=== PATIENT | female | born 2000 | race African-American/Black ===

== ENCOUNTER 2019-03-20 17:49 | Inpatient (IN) | payer OTHER ==
[2019-03-20 18:50] LABS: BILIRUBIN,URINE NEGATIVE (NEGATIVE); GLUCOSE, URINE (UA) NEGATIVE (NEGATIVE); KETONES,URINE (UA) TRACE mg/dL (NEGATIVE); LEUKOCYTE ESTERASE, URINE TRACE (NEGATIVE); NITRITE,URINE NEGATIVE (NEGATIVE); OCCULT BLOOD,URINE LARGE (NEGATIVE); PH,URINE 7.5 PH (5.0-7.5); PROTEIN,URINE 30 mg/dL (NEGATIVE); UROBILINOGEN,URINE 0.2 (NORMAL) E.U./dL (NORMAL)
[2019-03-20 18:52] LABS: CLARITY,URINE HAZY (CLEAR); HCG UR QUAL NEGATIVE
[2019-03-20 18:59] LABS: BACTERIA,URINE Many /HPF (None Seen); SQUAMOUS EPITHELIAL CELL,UR MANY Squamous (<= Few)
[2019-03-20 19:06] LABS: BASOPHILS % (AUTO) 0.3 %; EOSINOPHILS # (AUTO) 0.1 10^3/uL (0.0-0.7); EOSINOPHILS % (AUTO) 0.5 %; HGB - HEMOGLOBIN 15.1 g/dL (12.0-16.0); LYMPHOCYTES # (AUTO) 1.4 10^3/uL (1.5-3.5); MEAN CORPUSCULAR HEMOGLOBIN 31.7 pg (27.0-31.0); MEAN CORPUSCULAR HGB CONC 36.7 g/dL (32.0-36.0); MEAN CORPUSCULAR VOLUME 86.3 fL (81.0-99.0); MEAN PLATELET VOLUME 10.5 fL (7.9-10.8); MONOCYTES # (AUTO) 0.7 10^3/uL (0.0-1.0); MONOCYTES % (AUTO) 4.5 %; NEUTROPHILS # (AUTO) 13.4 10^3/uL (1.5-6.6); NEUTROPHILS % (AUTO) 85.3 %; PLT - PLATELET COUNT 278 10^3/uL (130-450); RED BLOOD COUNT 4.76 10^6/uL (4.20-5.40); RED CELL DISTRIBUTION WIDTH 12.4 % (12.0-15.0); WHITE BLOOD COUNT 15.7 x10^3/uL (4.8-10.8)
--- NOTE | 2019-03-20 20:12 | ED Physician Documentation ---
PD HPI ABD PAIN - Stated complaint Stated Complaint: R SIDE ABD PX - Chief complaint Chief Complaint: Abd Pain - History obtained from History obtained from: Patient, Family - History of Present Illness Timing - onset: Today Timing - duration: Other (all day) Timing - details: Abrupt onset Quality: Stabbing, Throbbing Location: RUQ, Epigastric, RLQ Radiation: No: Chest, , Lower back, Left flank, Left shoulder, Other, Right flank, Right shoulder, Upper back Associated symptoms: Vomiting, Loss of appetite. No: Fever, Hematemesis, Diarrhea, Dysuria, Hematuria, Dizzy Similar symptoms before: Has not had sx before Recently seen: Not recently seen - Additional information Additional information: This is a 19-year-old presents with complaints that she woke up this morning not feeling well and her stomach started hurting around the epigastric area around 11:00 with a stabbing throbbing type pain and she began vomiting. Her last emesis was here in the emergency department. She is had no diarrhea. The pain has now settled and increased on the right side of her abdomen. She did try to take an ibuprofen around 3:00 this afternoon but she thinks that she vomited it up. She denies any dysuria and denies stating her last menstrual period just started 3 days ago. Denies vaginal discharge or previous abdominal surgeries. She is had no fever. Review of Systems Constitutional: denies: Fever Nose: denies: Congestion Throat: denies: Sore throat Cardiac: denies: Chest pain / pressure Respiratory: denies: Cough GI: reports: Abdominal Pain, Nausea, Vomiting : denies: Dysuria, Hesitancy, Now EGA Skin: denies: Rash Neurologic: denies: Syncope PD PAST MEDICAL HISTORY - Present Medications Home Medications: Ambulatory Orders Medication Instructions Recorded Confirmed Norethindrone-E.estradiol-Iron 1 each PO 03/20/19 [Microgestin Fe 1-20 Tablet] - Allergies Allergies/Adverse Reactions: Allergies Allergy/AdvReac Type Severity Reaction Status Date / Time No Known Drug Allergies Allergy Verified 03/20/19 18:33 PD ED PE NORMAL - Vitals Vital signs reviewed: Yes - General General: Alert and oriented X 3, Well developed/nourished, Other (She looks uncomfortable sitting very still on the bed.) - HEENT HEENT: Atraumatic, Other (Mucous membranes are dry.) - Neck Neck: Supple, no meningeal sign, No adenopathy, Thyroid normal - Cardiac Cardiac: RRR, No murmur - Respiratory Respiratory: No respiratory distress, Clear bilaterally - Abdomen Abdomen: Normal bowel sounds, Other (She has diffuse tenderness with guarding and rebound.) - Back Back: No CVA TTP - Derm Derm: Normal color, No rash - Neuro Neuro: Alert and oriented X 3, Other (No gross neurological deficits.) - Psych Psych: Normal affect Results - Vitals Vitals: Vital Signs - 24 hr 03/20/19 03/20/19 03/20/19 18:31 19:56 20:13 Temperature 37.2 C 36.4 C L 37.3 C Heart Rate 109 H 80 91 Respiratory 20 16 18 Rate Blood Pressure 115/65 116/77 105/58 L O2 Saturation 98 96 99 03/20/19 03/20/19 21:07 21:25 Temperature Heart Rate 86 82 Respiratory 18 20 Rate Blood Pressure 107/68 107/68 O2 Saturation 99 100 Oxygen O2 Source Room air - Labs Labs: Laboratory Tests 03/20/19 03/20/19 03/20/19 18:40 19:01 19:01 WBC 15.7 H RBC 4.76 Hgb 15.1 Hct 41.1 MCV 86.3 MCH 31.7 H MCHC 36.7 H RDW 12.4 Plt Count 278 MPV 10.5 Neut # (Auto) 13.4 H Lymph # (Auto) 1.4 L [place] # (Auto) 0.7 Eos # (Auto) 0.1 Baso # (Auto) 0.0 Absolute Nucleated RBC 0.00 Nucleated RBC % 0.0 Sodium 135 Potassium 4.2 Chloride 98 L Carbon Dioxide 25 Anion Gap 12.0 BUN 10 Creatinine 0.7 Estimated GFR (MDRD) 128 Glucose 99 Calcium 9.3 Total Bilirubin < 0.2 L AST 39 ALT 23 Alkaline Phosphatase 63 Total Protein 6.5 L Albumin 4.3 Globulin 2.2 Albumin/Globulin Ratio 2.0 Lipase 446 H Urine Color YELLOW Urine Clarity HAZY Urine pH 7.5 Ur Specific [place] 1.020 Urine Protein 30 H Urine Glucose (UA) NEGATIVE Urine Ketones TRACE Urine Occult Blood LARGE H Urine Nitrite NEGATIVE Urine Bilirubin NEGATIVE Urine Urobilinogen 0.2 (NORMAL) Ur Leukocyte Esterase TRACE H Urine RBC 6-10 H Urine WBC >25 H Ur Squamous Epith Cells MANY Squamous H Urine Bacteria Many H Ur Microscopic Review INDICATED Urine Culture Comments NOT INDICATED Urine HCG, Qual NEGATIVE PD MEDICAL DECISION MAKING - ED course Complexity details: reviewed results, re-evaluated patient, d/w patient, d/w nano burgess ED course: The patient was medicated with Dilaudid and Zofran she was given a liter of fluids. Her urine specimen is contaminated and have asked her to provide a clean new specimen. Her white count was 15.7 and her lipase came back at 446 with normal liver functions. CT confirmed pancreatic inflammation with a lot of peripancreatic fluid no evidence of appendicitis. Case was discussed with the hospitalist and he has agreed to accept the patient for admission. Departure - Departure Disposition: ED Place in Observation Clinical Impression: Pancreatitis Qualifiers: Chronicity: acute Pancreatitis type: unspecified pancreatitis type Acute pancreatitis complication: unspecified Qualified Code(s): K85.90 - Acute pancreatitis without necrosis or infection, unspecified Condition: Good Discharge Date/Time: 03/20/19 23:00
[2019-03-20 20:21] LABS: ALBUMIN 4.3 g/dL (3.2-5.5); ALKALINE PHOSPHATASE 63 IU/L (42-121); ALT ALANINE AMINOTRANSFERASE 23 IU/L (10-60); AST ASPARTATE AMINOTRANSFERASE 39 IU/L (10-42); BILIRUBIN,TOTAL < 0.2 mg/dL (0.2-1.0); BUN - BLOOD UREA NITROGEN 10 mg/dL (6-20); CALCIUM 9.3 mg/dL (8.5-10.3); CARBON DIOXIDE - CO2 25 mmol/L (21-32); CHLORIDE 98 mmol/L (101-111); CREATININE 0.7 mg/dL (0.4-1.0); GFR - MDRD 128 (>89); GLUCOSE 99 mg/dL (70-100); LIPASE 446 U/L (22-51); SODIUM 135 mmol/L (135-145); TOTAL PROTEIN 6.5 g/dL (6.7-8.2)
[2019-03-20] MEDS ORDERED: ONDANSETRON 4 MG/2 ML VIAL IVP STA (20:22)
[2019-03-20] MEDS ORDERED: HYDROmorphone 1 MG/ML CARPUJECT IVP STA ×2 (20:22→21:25)
[2019-03-20] MEDS ORDERED: SODIUM CHLORIDE 0.9% 1,000 ML IV ONE ×2 (20:27→21:36)
[2019-03-20] MEDS ORDERED: IOVERSOL 320 100 ML VIAL IVP ONE ×2 (20:37→20:50)
--- NOTE | 2019-03-20 21:13 | CT Report ---
Reason: abd pain Procedure Date: 03/20/2019 Accession Number: [id number] / [id number] Procedure: CT - Abdomen/Pelvis W CPT Code: FULL RESULT: EXAM: CT ABDOMEN AND PELVIS WITH CONTRAST. EXAM DATE: 03/20/2019 08:47 PM. CLINICAL HISTORY: Abdominal pain. Right lower quadrant pain. COMPARISONS: None. TECHNIQUE: Routine helical CT imaging was performed through the abdomen and pelvis. IV contrast: OPTI-320 100 mL. Enteric contrast: No. Reconstructions: Coronal and sagittal. In accordance with CT protocol optimization, one or more of the following dose reduction techniques were utilized for this exam: automated exposure control, adjustment of mA and/or KV based on patient size, or use of iterative reconstructive technique. FINDINGS: Lung Bases: No acute findings. Liver: Diffuse fatty liver. Gallbladder/Bile Ducts: Unremarkable. Spleen: Normal. Pancreas/duodenum: Diffuse peripancreatic fluid. This fluid is adjacent to the duodenum diffusely, most prominent at the proximal aspect. Acute pancreatitis and/or acute duodenitis could be present. Correlate clinically. No free air or abscess is seen. Small free fluid seen at the right paracolic gutter. Small free fluid in the posterior cul-de-sac. Adrenal Glands: Normal. Kidneys: Normal. No masses or hydronephrosis. Peritoneal Cavity/Bowel: No dilated bowel loops are seen. See above. The cecum is located in the pelvis. The appendix appears within normal limits. Pelvic Organs: Normal. The bladder and visualized pelvic organs are within normal limits. Vasculature: No aneurysms or other significant abnormality. Bones: No acute bone findings. IMPRESSION: 1. Diffuse peripancreatic fluid. This fluid is adjacent to the duodenum diffusely, most prominent at the proximal aspect. Acute pancreatitis and/or acute duodenitis could be present. Correlate clinically. No free air or abscess is seen. Small free fluid seen at the right paracolic gutter. Small free fluid in the posterior cul-de-sac. 2. Fatty liver. 3. See above. RADIA
[2019-03-20] MEDS ORDERED: HYDROmorphone 1 MG/ML CARPUJECT IVP PRN (21:41)
[2019-03-20] MEDS ORDERED: SODIUM CHLORIDE 0.9% 1,000 ML IV SCH (22:00)
[2019-03-20] MEDS ORDERED: MORPHINE 2 MG/ML CARPUJECT IVP STA (22:03)
--- NOTE | 2019-03-20 22:22 | HISTORY & PHYSICAL EXAMINATION ---
Chief Complaint - Chief Complaint Chief Complaint: epigastric pain History of Present Illness - Admitted From Admitted From:: [facility] ED - History Obtained From Records Reviewed: yes History obtained from: patient - History of Present Illness HPI Comment/Other: Patient seen and examined aroun 23:00pm on 03/20/19 Patient is a 19 y/o female who presented to the ED with epigastric pain which started on 03/20/19 in the morning. It was initially a sharp pain which progressed to a throbbing pain. She has been nauseous and vomiting. She denied c hest pain, JAVIER, fever or chills. She drank alcohol about 3 weeks ago when she turned 19 but last had a glass of wine 4 days ago. She was also recently treated with flagyl for a UTI. She is on control. There has been no trauma recently. In the ED she had a CT done which showed bishnu-pancreatic fluid suggesting pancreatitis and fatty liver. Lipase was 446. She rated her pain 10/10 at presentation. As a result of her pain, she is being admitted for further treatment. 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 Denies illicit drug use or tobacco use. She goes to college in [place] - POLST Patient has POLST: No POLST Status: Full Code Meds/Allgy - Home Medications Home Medications: Ambulatory Orders Medication Instructions Recorded Confirmed Norethindrone-E.estradiol-Iron 1 each PO 03/20/19 [Microgestin Fe 1-20 Tablet] - Allergies Allergies/Adverse Reactions: Allergies Allergy/AdvReac Type Severity Reaction Status Date / Time No Known Drug Allergies Allergy Verified 03/20/19 18:33 Review of Systems - Constitutional Constitutional: reports: Poor appetite. denies: Fever, Chills - Eyes Eyes: denies: Blurred vision, Vision loss, Dipolpia - Ears, Nose & Throat Ears, Nose & Throat: denies: Nasal pain, Sore throat, Hoarseness - Cardiovascular Cariovascular: denies: Chest pain, Edema, Lightheadedness, Syncope, Exertional dyspnea - Respiratory Respiratory: denies: Cough, Sputum production, Wheezing, Hemoptysis, SOB at rest, SOB with exertion - Gastrointestinal Gastrointestinal: reports: Abdominal pain, Nausea, Vomiting. denies: Constipation, Diarrhea, Black stools, Bloody stools, Coffee grounds emesis, Reflux/heartburn - Genitourinary Genitourinary: denies: Dysuria, Frequency, Urgency, Hematuria - Musculoskeletal Musculoskeletal: denies: Muscle pain, Back pain, Muscle aches - Integumentary Integumentary: denies: Rash, Pruritis, Lesions - Neurological Neurological: denies: Focal weakness, Headache, Dizziness - Psychiatric Psychiatric: denies: Depression, Anxiety - Endocrine Endocrine: denies: Polyuria, Polydypsia - Hematologic/Lymphatic Hematologic/Lymphatic: denies: Anemia, Bruising, Petechiae Prior Level of Functionality: Patient is independent of activities of daily living Exam - Vital Signs Vital Signs: Vital Signs x48h Temp Pulse Resp BP Pulse Ox 03/20/19 21:25 82 20 107/68 100 03/20/19 21:07 86 18 107/68 99 03/20/19 20:13 37.3 C 91 18 105/58 L 99 03/20/19 19:56 36.4 C L 80 16 116/77 96 03/20/19 18:31 37.2 C 109 H 20 115/65 98 - Physical Exam General Appearance: positive: Alert, Moderate distress Eyes Bilateral: positive: Normal inspection, PERRL, EOMI ENT: positive: ENT inspection nml Neck: positive: Nml inspection, No JVD, Trachea midline. negative: Brudzinski's sign Respiratory: positive: Chest non-tender, No respiratory distress, Breath sounds nml. negative: Rales, Rhonchi Cardiovascular: positive: No murmur, No gallop, Tachycardia Abdomen: positive: Tenderness, Guarding, Rebound Back: positive: Nml inspection Skin: positive: Color nml, No rash, Warm, Dry Extremities: positive: Non-tender, Full ROM, Nml appearance, No pedal edema Neurologic/Psychiatric: positive: Oriented x3, CN's nml (2-12), Motor nml, Sensation nml, Mood/affect nml Conclusion/Plan - Problem List (1) Acute pancreatitis Conclusion/Plan: Etiology undetermined However CT scan suggested fatty liver Patient is on control (known cause) and recently completed a prescription of flagyl (probable cause) NPO. IV hydration with normal saline. Pain management with dilaudid. Zofran for nausea Trend lipase. Checking lipid panel Qualifiers: Acute pancreatitis complication: unspecified (2) Anxiety Conclusion/Plan: Sees a therapist. Not on any medication - Lab Results Fish Bones: 03/21/19 04:54 03/21/19 04:54 Core Measures - Anticipated LOS I expect patient to be DC'd or transferred within 96 hours.: Yes - DVT/VTE - Prophylaxis VTE/DVT Device ordered at admit?: Yes
[2019-03-20 22:36] LABS: BILIRUBIN,URINE NEGATIVE (NEGATIVE); GLUCOSE, URINE (UA) NEGATIVE (NEGATIVE); KETONES,URINE (UA) TRACE mg/dL (NEGATIVE); LEUKOCYTE ESTERASE, URINE NEGATIVE (NEGATIVE); NITRITE,URINE NEGATIVE (NEGATIVE); OCCULT BLOOD,URINE MODERATE (NEGATIVE); PH,URINE 7.5 PH (5.0-7.5); PROTEIN,URINE NEGATIVE (NEGATIVE); UROBILINOGEN,URINE 0.2 (NORMAL) E.U./dL (NORMAL)
[2019-03-20 22:38] LABS: CLARITY,URINE CLEAR (CLEAR)
[2019-03-20 22:47] LABS: BACTERIA,URINE Many /HPF (None Seen); RBC,URINE 0-5 /HPF (0-5); SQUAMOUS EPITHELIAL CELL,UR MANY Squamous (<= Few)
[2019-03-20] MEDS: ONDANSETRON 4 MG/2 ML VIAL IVP PRN (23:17)
[2019-03-21] MEDS: SODIUM CHLORIDE FLUSH 0.9% 10 ML SYRINGE IVP SCH ×3 (00:15→04:38)
[2019-03-21] MEDS ORDERED: PROCHLORPERAZINE 10 MG/2 ML VIAL IVP STA (00:27)
[2019-03-21] MEDS: HYDROmorphone 1 MG/ML CARPUJECT IVP PRN ×6 (00:44→16:36)
[2019-03-21 05:34] LABS: BASOPHILS % (AUTO) 0.2 %; EOSINOPHILS # (AUTO) 0.1 10^3/uL (0.0-0.7); EOSINOPHILS % (AUTO) 0.3 %; HGB - HEMOGLOBIN 14.1 g/dL (12.0-16.0); LYMPHOCYTES # (AUTO) 0.9 10^3/uL (1.5-3.5); LYMPHOCYTES % (AUTO) 5.4 %; MEAN CORPUSCULAR HEMOGLOBIN 29.7 pg (27.0-31.0); MEAN CORPUSCULAR HGB CONC 34.1 g/dL (32.0-36.0); MEAN CORPUSCULAR VOLUME 87.1 fL (81.0-99.0); MEAN PLATELET VOLUME 11.1 fL (7.9-10.8); MONOCYTES # (AUTO) 0.7 10^3/uL (0.0-1.0); MONOCYTES % (AUTO) 4.6 %; NEUTROPHILS # (AUTO) 14.2 10^3/uL (1.5-6.6); NEUTROPHILS % (AUTO) 88.9 %; PLT - PLATELET COUNT 277 10^3/uL (130-450); RED BLOOD COUNT 4.74 10^6/uL (4.20-5.40); RED CELL DISTRIBUTION WIDTH 12.4 % (12.0-15.0)
[2019-03-21 05:53] LABS: CHOL/HDL RATIO 15.2 (<4.4); CHOLESTEROL 304 mg/dL; HDL CHOLESTEROL 20 mg/dL
[2019-03-21 06:06] LABS: CALCIUM 7.2 mg/dL (8.5-10.3); CREATININE 0.5 mg/dL (0.4-1.0)
[2019-03-21 06:31] LABS: LDL CHOLESTEROL,DIRECT 34 mg/dL; LDLD/HDL RATIO 1.7 (<4.4)
[2019-03-21] MEDS: PANTOPRAZOLE 40 MG VIAL IVP SCH (06:41)
[2019-03-21] MEDS: ONDANSETRON 4 MG/2 ML VIAL IVP PRN ×3 (06:41→20:06)
[2019-03-21] MEDS: SODIUM CHLORIDE FLUSH 0.9% 10 ML SYRINGE IVP PRN ×6 (06:41→20:07)
[2019-03-21 08:05] LABS: HB2 TOTAL 14.3 g/dL; HEMOGLOBIN A1C 0.48 g/dL; HEMOGLOBIN A1C % 5.2 % (4.6-6.2)
[2019-03-21] MEDS: INSULIN REGULAR HUMAN 100 UNIT in SODIUM CHLORIDE 0.9% 100ML 99 ML IV ONE (09:33)
[2019-03-21] MEDS: DEXTROSE 5%-0.45% NACL 1,000 ML IV SCH ×2 (09:47→18:01)
[2019-03-21] MEDS: POLYETHYLENE GLYCOL 3350 17 GM PACKET PO SCH (11:07)
[2019-03-21] MEDS: PHENOL THROAT SPRAY 177 ML MM PRN ×2 (11:12→16:23)
[2019-03-21] MEDS: KETOROLAC 30 MG/ML VIAL IVP PRN ×2 (12:40→20:22)
--- NOTE | 2019-03-21 15:16 | PROVIDER PROGRESS NOTE ---
Subjective - Prog Note Date Prog Note Date: 03/21/19 Prog Note Time: 15:09 Current Medications - Current Medications Current Medications: Active Medications Hydromorphone HCl (Dilaudid Inj Carp) 1 mg IVP Q2HR PRN PRN Reason: Pain 8 to 10 Last Admin: 03/21/19 14:02 Dose: 1 mg Dextrose/Sodium Chloride (D5.45ns) 1,000 mls @ 125 mls/hr IV .Q8H ON LICENSE OF [facility] Last Infusion: 03/21/19 13:05 Dose: 125 mls/hr Insulin Human Regular 100 unit (/ Sodium Chloride) 100 mls @ 3 mls/hr IV .[id number] ONE; Protocol Stop: 03/22/19 16:57 Last Titration: 03/21/19 13:05 Dose: 3 unit/hr, 3 mls/hr Ketorolac Tromethamine (Toradol Inj (30mg)) 30 mg IVP Q6HR PRN PRN Reason: PAIN Stop: 03/26/19 12:39 Last Admin: 03/21/19 12:40 Dose: 30 mg Ondansetron HCl (Zofran Inj) 4 mg IVP Q6HR PRN PRN Reason: Nausea / Vomiting Last Admin: 03/21/19 12:20 Dose: 4 mg Pantoprazole Sodium (Protonix) 40 mg IVP QDAC ON LICENSE OF [facility] Last Admin: 03/21/19 06:41 Dose: 40 mg Phenol/Menthol (Chloraseptic) 2 sprays MM Q2HR PRN PRN Reason: Throat Pain Last Admin: 03/21/19 11:12 Dose: 1 sprays Polyethylene Glycol (Miralax) 17 gm PO DAILY ON LICENSE OF [facility] Last Admin: 03/21/19 11:07 Dose: Not Given Sodium Chloride (Normal Saline Flush 0.9%) 10 ml IVP PRN PRN PRN Reason: NEEDED PER PROVIDER ORDERS Last Admin: 03/21/19 14:05 Dose: 10 ml Sodium Chloride (Normal Saline Flush 0.9%) 10 ml IVP 0100,0900,1700 ON LICENSE OF [facility] Last Admin: 03/21/19 04:38 Dose: 10 ml Norethindrone-E.estradiol-Iron [Microgestin Fe 1-20 Tablet] 1 tab PO DAILY 03/20/19 Cetirizine [ZyrTEC] 10 mg PO DAILY 03/21/19 Objective - Vital Signs/Intake & Output Reviewed Vital Signs: Yes Vital Signs: Vital Signs Temp Pulse Resp BP Pulse Ox 03/21/19 12:08 36.5 C 100 16 121/82 H 100 Intake & Output: Intake & Output 03/18/19 03/19/19 03/20/19 03/21/19 23:59 23:59 23:59 23:59 Intake Total 1000 2453.100 Output Total 1125 Balance 1000 1328.100 - Objective General Appearance: positive: No acute distress, Alert, Other (tearful bc won't make plane to [place] on 03/23) Eyes Bilateral: positive: PERRL ENT: positive: Pharynx nml Neck: positive: No JVD Respiratory: positive: No respiratory distress. negative: Wheezes, Rales, Rhon chi Cardiovascular: positive: Regular rate & rhythm. negative: Gallop/S4, Friction rub Abdomen: positive: No organomegaly, Nml bowel sounds, Tenderness. negative: Guarding, Rebound Skin: positive: Warm, Dry Extremities: positive: Full ROM, No pedal edema Neurologic/Psychiatric: positive: Oriented x3, CN's nml (2-12), Motor nml, Sensation nml - Lab Results Fish Bones: 03/21/19 04:54 03/21/19 04:54 Other Labs: Lab Results x24hrs 03/21/19 03/21/19 03/21/19 Range/Units 13:27 11:04 10:03 WBC (4.8-10.8) x10^3/uL RBC (4.20-5.40) 10^6/uL Hgb (12.0-16.0) g/dL Hct (37.0-47.0) % MCV (81.0-99.0) fL MCH (27.0-31.0) pg MCHC (32.0-36.0) g/dL RDW (12.0-15.0) % Plt Count (130-450) 10^3/uL MPV (7.9-10.8) fL Neut # (Auto) (1.5-6.6) 10^3/uL Lymph # (Auto) (1.5-3.5) 10^3/uL [place] # (Auto) (0.0-1.0) 10^3/uL Eos # (Auto) (0.0-0.7) 10^3/uL Baso # (Auto) (0.0-0.1) 10^3/uL Absolute Nucleated RBC x10^3/uL Nucleated RBC % /100WBC Sodium (135-145) mmol/L Potassium (3.5-5.0) mmol/L Chloride (101-111) mmol/L Carbon Dioxide (21-32) mmol/L Anion Gap (6-13) BUN (6-20) mg/dL Creatinine (0.4-1.0) mg/dL Estimated GFR (MDRD) (>89) Glucose (70-100) mg/dL POC Whole Bld Glucose 145 H 158 H 148 H (70 - 100) mg/dL Glycated Hemoglobin (4.6-6.2) % Estim Average Glucose (70-100) Calcium (8.5-10.3) mg/dL Total Bilirubin (0.2-1.0) mg/dL AST (10-42) IU/L ALT (10-60) IU/L Alkaline Phosphatase (42-121) IU/L Total Protein (6.7-8.2) g/dL Albumin (3.2-5.5) g/dL Globulin (2.1-4.2) g/dL Albumin/Globulin Ratio (1.0-2.2) Triglycerides ( - 149) mg/dL Cholesterol ( - 199) mg/dL LDL Cholesterol Direct ( - 129) mg/dL LDL Cholesterol, Calc VLDL Cholesterol HDL Cholesterol (60 - ) mg/dL LDL/HDL Ratio dLDL/HDL Ratio (<4.4) Cholesterol/HDL Ratio (<4.4) Lipase (22-51) U/L TSH (0.34-5.60) uIU/mL Urine Color Urine Clarity (CLEAR) Urine pH (5.0-7.5) PH Ur Specific [place] (1.002-1.030) Urine Protein (NEGATIVE) mg/dL Urine Glucose (UA) (NEGATIVE) mg/dL Urine Ketones (NEGATIVE) mg/dL Urine Occult Blood (NEGATIVE) Urine Nitrite (NEGATIVE) Urine Bilirubin (NEGATIVE) Urine Urobilinogen (NORMAL) E.U./dL Ur Leukocyte Esterase (NEGATIVE) Urine RBC (0-5) /HPF Urine WBC (0-5) /HPF Ur Squamous Epith Cells (<= Few) Urine Bacteria (None Seen) /HPF Ur Microscopic Review Urine Culture Comments Urine HCG, Qual Nasal Screen MRSA (PCR) (NEGATIVE) 03/21/19 03/21/19 03/21/19 Range/Units 09:53 08:30 07:36 WBC (4.8-10.8) x10^3/uL RBC (4.20-5.40) 10^6/uL Hgb (12.0-16.0) g/dL Hct (37.0-47.0) % MCV (81.0-99.0) fL MCH (27.0-31.0) pg MCHC (32.0-36.0) g/dL RDW (12.0-15.0) % Plt Count (130-450) 10^3/uL MPV (7.9-10.8) fL Neut # (Auto) (1.5-6.6) 10^3/uL Lymph # (Auto) (1.5-3.5) 10^3/uL [place] # (Auto) (0.0-1.0) 10^3/uL Eos # (Auto) (0.0-0.7) 10^3/uL Baso # (Auto) (0.0-0.1) 10^3/uL Absolute Nucleated RBC x10^3/uL Nucleated RBC % /100WBC Sodium (135-145) mmol/L Potassium (3.5-5.0) mmol/L Chloride (101-111) mmol/L Carbon Dioxide (21-32) mmol/L Anion Gap (6-13) BUN (6-20) mg/dL Creatinine (0.4-1.0) mg/dL Estimated GFR (MDRD) (>89) Glucose (70-100) mg/dL POC Whole Bld Glucose 133 H (70 - 100) mg/dL Glycated Hemoglobin (4.6-6.2) % Estim Average Glucose (70-100) Calcium (8.5-10.3) mg/dL Total Bilirubin (0.2-1.0) mg/dL AST (10-42) IU/L ALT (10-60) IU/L Alkaline Phosphatase (42-121) IU/L Total Protein (6.7-8.2) g/dL Albumin (3.2-5.5) g/dL Globulin (2.1-4.2) g/dL Albumin/Globulin Ratio (1.0-2.2) Triglycerides ( - 149) mg/dL Cholesterol ( - 199) mg/dL LDL Cholesterol Direct ( - 129) mg/dL LDL Cholesterol, Calc VLDL Cholesterol HDL Cholesterol (60 - ) mg/dL LDL/HDL Ratio dLDL/HDL Ratio (<4.4) Cholesterol/HDL Ratio (<4.4) Lipase (22-51) U/L TSH 0.78 (0.34-5.60) uIU/mL Urine Color Urine Clarity (CLEAR) Urine pH (5.0-7.5) PH Ur Specific [place] (1.002-1.030) Urine Protein (NEGATIVE) mg/dL Urine Glucose (UA) (NEGATIVE) mg/dL Urine Ketones (NEGATIVE) mg/dL Urine Occult Blood (NEGATIVE) Urine Nitrite (NEGATIVE) Urine Bilirubin (NEGATIVE) Urine Urobilinogen (NORMAL) E.U./dL Ur Leukocyte Esterase (NEGATIVE) Urine RBC (0-5) /HPF Urine WBC (0-5) /HPF Ur Squamous Epith Cells (<= Few) Urine Bacteria (None Seen) /HPF Ur Microscopic Review Urine Culture Comments Urine HCG, Qual Nasal Screen MRSA (PCR) NEGATIVE (NEGATIVE) 03/21/19 03/21/19 03/21/19 Range/Units 04:54 04:54 04:54 WBC (4.8-10.8) x10^3/uL RBC (4.20-5.40) 10^6/uL Hgb (12.0-16.0) g/dL Hct (37.0-47.0) % MCV (81.0-99.0) fL MCH (27.0-31.0) pg MCHC (32.0-36.0) g/dL RDW (12.0-15.0) % Plt Count (130-450) 10^3/uL MPV (7.9-10.8) fL Neut # (Auto) (1.5-6.6) 10^3/uL Lymph # (Auto) (1.5-3.5) 10^3/uL [place] # (Auto) (0.0-1.0) 10^3/uL Eos # (Auto) (0.0-0.7) 10^3/uL Baso # (Auto) (0.0-0.1) 10^3/uL Absolute Nucleated RBC x10^3/uL Nucleated RBC % /100WBC Sodium 136 (135-145) mmol/L Potassium 3.6 (3.5-5.0) mmol/L Chloride 105 (101-111) mmol/L Carbon Dioxide 20 L (21-32) mmol/L Anion Gap 11.0 (6-13) BUN 8 (6-20) mg/dL Creatinine 0.5 (0.4-1.0) mg/dL Estimated GFR (MDRD) 189 (>89) Glucose 123 H (70-100) mg/dL POC Whole Bld Glucose (70 - 100) mg/dL Glycated Hemoglobin 5.2 (4.6-6.2) % Estim Average Glucose 103 H (70-100) Calcium 7.2 L (8.5-10.3) mg/dL Total Bilirubin (0.2-1.0) mg/dL AST (10-42) IU/L ALT (10-60) IU/L Alkaline Phosphatase (42-121) IU/L Total Protein (6.7-8.2) g/dL Albumin (3.2-5.5) g/dL Globulin (2.1-4.2) g/dL Albumin/Globulin Ratio (1.0-2.2) Triglycerides 1862 H ( - 149) mg/dL Cholesterol 304 H ( - 199) mg/dL LDL Cholesterol Direct 34 ( - 129) mg/dL LDL Cholesterol, Calc Not Reportable VLDL Cholesterol Not Reportable HDL Cholesterol 20 L (60 - ) mg/dL LDL/HDL Ratio Not Reportable dLDL/HDL Ratio 1.7 (<4.4) Cholesterol/HDL Ratio 15.2 (<4.4) Lipase 1400 H (22-51) U/L TSH (0.34-5.60) uIU/mL Urine Color Urine Clarity (CLEAR) Urine pH (5.0-7.5) PH Ur Specific [place] (1.002-1.030) Urine Protein (NEGATIVE) mg/dL Urine Glucose (UA) (NEGATIVE) mg/dL Urine Ketones (NEGATIVE) mg/dL Urine Occult Blood (NEGATIVE) Urine Nitrite (NEGATIVE) Urine Bilirubin (NEGATIVE) Urine Urobilinogen (NORMAL) E.U./dL Ur Leukocyte Esterase (NEGATIVE) Urine RBC (0-5) /HPF Urine WBC (0-5) /HPF Ur Squamous Epith Cells (<= Few) Urine Bacteria (None Seen) /HPF Ur Microscopic Review Urine Culture Comments Urine HCG, Qual Nasal Screen MRSA (PCR) (NEGATIVE) 03/21/19 03/20/19 03/20/19 Range/Units 04:54 22:10 19:01 WBC 16.0 H (4.8-10.8) x10^3/uL RBC 4.74 (4.20-5.40) 10^6/uL Hgb 14.1 (12.0-16.0) g/dL Hct 41.3 (37.0-47.0) % MCV 87.1 (81.0-99.0) fL MCH 29.7 (27.0-31.0) pg MCHC 34.1 (32.0-36.0) g/dL RDW 12.4 (12.0-15.0) % Plt Count 277 (130-450) 10^3/uL MPV 11.1 H (7.9-10.8) fL Neut # (Auto) 14.2 H (1.5-6.6) 10^3/uL Lymph # (Auto) 0.9 L (1.5-3.5) 10^3/uL [place] # (Auto) 0.7 (0.0-1.0) 10^3/uL Eos # (Auto) 0.1 (0.0-0.7) 10^3/uL Baso # (Auto) 0.0 (0.0-0.1) 10^3/uL Absolute Nucleated RBC 0.00 x10^3/uL Nucleated RBC % 0.0 /100WBC Sodium 135 (135-145) mmol/L Potassium 4.2 (3.5-5.0) mmol/L Chloride 98 L (101-111) mmol/L Carbon Dioxide 25 (21-32) mmol/L Anion Gap 12.0 (6-13) BUN 10 (6-20) mg/dL Creatinine 0.7 (0.4-1.0) mg/dL Estimated GFR (MDRD) 128 (>89) Glucose 99 (70-100) mg/dL POC Whole Bld Glucose (70 - 100) mg/dL Glycated Hemoglobin (4.6-6.2) % Estim Average Glucose (70-100) Calcium 9.3 (8.5-10.3) mg/dL Total Bilirubin < 0.2 L (0.2-1.0) mg/dL AST 39 (10-42) IU/L ALT 23 (10-60) IU/L Alkaline Phosphatase 63 (42-121) IU/L Total Protein 6.5 L (6.7-8.2) g/dL Albumin 4.3 (3.2-5.5) g/dL Globulin 2.2 (2.1-4.2) g/dL Albumin/Globulin Ratio 2.0 (1.0-2.2) Triglycerides ( - 149) mg/dL Cholesterol ( - 199) mg/dL LDL Cholesterol Direct ( - 129) mg/dL LDL Cholesterol, Calc VLDL Cholesterol HDL Cholesterol (60 - ) mg/dL LDL/HDL Ratio dLDL/HDL Ratio (<4.4) Cholesterol/HDL Ratio (<4.4) Lipase 446 H (22-51) U/L TSH (0.34-5.60) uIU/mL Urine Color YELLOW Urine Clarity CLEAR (CLEAR) Urine pH 7.5 (5.0-7.5) PH Ur Specific [place] <=1.005 (1.002-1.030) Urine Protein NEGATIVE (NEGATIVE) mg/dL Urine Glucose (UA) NEGATIVE (NEGATIVE) mg/dL Urine Ketones TRACE (NEGATIVE) mg/dL Urine Occult Blood MODERATE H (NEGATIVE) Urine Nitrite NEGATIVE (NEGATIVE) Urine Bilirubin NEGATIVE (NEGATIVE) Urine Urobilinogen 0.2 (NORMAL) (NORMAL) E.U./dL Ur Leukocyte Esterase NEGATIVE (NEGATIVE) Urine RBC 0-5 (0-5) /HPF Urine WBC 4-5 (0-5) /HPF Ur Squamous Epith Cells MANY Squamous H (<= Few) Urine Bacteria Many H (None Seen) /HPF Ur Microscopic Review INDICATED Urine Culture Comments NOT INDICATED Urine HCG, Qual Nasal Screen MRSA (PCR) (NEGATIVE) 03/20/19 03/20/19 Range/Units 19:01 18:40 WBC 15.7 H (4.8-10.8) x10^3/uL RBC 4.76 (4.20-5.40) 10^6/uL Hgb 15.1 (12.0-16.0) g/dL Hct 41.1 (37.0-47.0) % MCV 86.3 (81.0-99.0) fL MCH 31.7 H (27.0-31.0) pg MCHC 36.7 H (32.0-36.0) g/dL RDW 12.4 (12.0-15.0) % Plt Count 278 (130-450) 10^3/uL MPV 10.5 (7.9-10.8) fL Neut # (Auto) 13.4 H (1.5-6.6) 10^3/uL Lymph # (Auto) 1.4 L (1.5-3.5) 10^3/uL [place] # (Auto) 0.7 (0.0-1.0) 10^3/uL Eos # (Auto) 0.1 (0.0-0.7) 10^3/uL Baso # (Auto) 0.0 (0.0-0.1) 10^3/uL Absolute Nucleated RBC 0.00 x10^3/uL Nucleated RBC % 0.0 /100WBC Sodium (135-145) mmol/L Potassium (3.5-5.0) mmol/L Chloride (101-111) mmol/L Carbon Dioxide (21-32) mmol/L Anion Gap (6-13) BUN (6-20) mg/dL Creatinine (0.4-1.0) mg/dL Estimated GFR (MDRD) (>89) Glucose (70-100) mg/dL POC Whole Bld Glucose (70 - 100) mg/dL Glycated Hemoglobin (4.6-6.2) % Estim Average Glucose (70-100) Calcium (8.5-10.3) mg/dL Total Bilirubin (0.2-1.0) mg/dL AST (10-42) IU/L ALT (10-60) IU/L Alkaline Phosphatase (42-121) IU/L Total Protein (6.7-8.2) g/dL Albumin (3.2-5.5) g/dL Globulin (2.1-4.2) g/dL Albumin/Globulin Ratio (1.0-2.2) Triglycerides ( - 149) mg/dL Cholesterol ( - 199) mg/dL LDL Cholesterol Direct ( - 129) mg/dL LDL Cholesterol, Calc VLDL Cholesterol HDL Cholesterol (60 - ) mg/dL LDL/HDL Ratio dLDL/HDL Ratio (<4.4) Cholesterol/HDL Ratio (<4.4) Lipase (22-51) U/L TSH (0.34-5.60) uIU/mL Urine Color YELLOW Urine Clarity HAZY (CLEAR) Urine pH 7.5 (5.0-7.5) PH Ur Specific [place] 1.020 (1.002-1.030) Urine Protein 30 H (NEGATIVE) mg/dL Urine Glucose (UA) NEGATIVE (NEGATIVE) mg/dL Urine Ketones TRACE (NEGATIVE) mg/dL Urine Occult Blood LARGE H (NEGATIVE) Urine Nitrite NEGATIVE (NEGATIVE) Urine Bilirubin NEGATIVE (NEGATIVE) Urine Urobilinogen 0.2 (NORMAL) (NORMAL) E.U./dL Ur Leukocyte Esterase TRACE H (NEGATIVE) Urine RBC 6-10 H (0-5) /HPF Urine WBC >25 H (0-5) /HPF Ur Squamous Epith Cells MANY Squamous H (<= Few) Urine Bacteria Many H (None Seen) /HPF Ur Microscopic Review INDICATED Urine Culture Comments NOT INDICATED Urine HCG, Qual NEGATIVE Nasal Screen MRSA (PCR) (NEGATIVE) Assessment/Plan - Problem List (1) Acute pancreatitis Impression: This is an unfortunate young female who turned 19, 3 weeks ago. She never drank prior to that because she did not like alcohol. She does not know how much she drank the day before her birthday, or how much she drank on her birthday. She just knows it was "a lot" with her girlfriends. Both of those days she was very sick with nausea vomiting and abdominal pain. She felt like she improved, and her stomach was just a little bit queasy but otherwise doing well. She is already on oral contraceptives. She does have a vague familial history of high lipids and 1 of her father's family members. So she does not know if she has familial hypertriglyceridemia. She may have had hypertriglyceridemia, did binge drinking, and takes oral contraceptives resulting in pancreatitis. Plan: Change from observation status to inpatient status. I think she is going to be here more than 2 midnights. Continue n.p.o. status except for ice chips Start insulin drip for pancreatitis. At this time a pheresis was considered but will be put to the side until we can see if she responds to the insulin drip. Long conversation had with mom and her. Her adoptive mother is at the bedside. They have been in contact with her mother to get the family history. Qualifiers: Pancreatitis type: other Acute pancreatitis complication: unspecified Qualified Code(s): K85.80 - Other acute pancreatitis without necrosis or infect ion (2) Anxiety Impression: She is tearful. Already sees a counselor for anxiety. School starts in a week. I really cannot guarantee that she will be able to start school. She is making plans to stop the class that she has to be present for. But will keep her online classes. (3) Familial hypertriglyceridemia Impression: When she is through her acute phase of hypertriglyceridemia and pancreatitis, she would be a candidate for starting Lopid. She may have to stop her oral contraceptives. However, I would really like her to see a lipid specialist. She is seen by [facility] in [place]. Her mother and she are trying to get me the name of her PCP so I can make contact and then start making the appropriate referrals through that clinic. (4) Oral contraceptive use Impression: Oral contraceptives were used for menometrorrhagia and severe cramping. She is starting her period right now and is in moderate pain. Will use Toradol IV every 6 as needed (5) Alcohol consumption binge drinking Impression: Not a usual pattern of behavior for her. She is never really liked alcohol. When I asked her in various ways how much she drank that day she really does not have any recollection. She says that her best friend was buying her drinks and she does not know how many she drank either the day before her birthday or on her birthday. I have asked her to never drink alcohol again
[2019-03-21] MEDS ORDERED: PROCHLORPERAZINE 10 MG/2 ML VIAL IVP PRN (17:55)
[2019-03-21] MEDS: PROMETHAZINE 12.5 MG TABLET PO PRN (21:54)
[2019-03-22] MEDS: SODIUM CHLORIDE FLUSH 0.9% 10 ML SYRINGE IVP SCH ×4 (01:29→23:26)
[2019-03-22] MEDS: ONDANSETRON 4 MG/2 ML VIAL IVP PRN ×4 (02:03→23:26)
[2019-03-22] MEDS: DEXTROSE 5%-0.45% NACL 1,000 ML IV SCH ×3 (02:03→18:24)
[2019-03-22] MEDS: PROMETHAZINE 12.5 MG TABLET PO PRN ×2 (04:14→15:51)
[2019-03-22 04:52] LABS: BASOPHILS % (AUTO) 0.6 %; EOSINOPHILS % (AUTO) 0.2 %; LYMPHOCYTES % (AUTO) 20.1 %; MEAN CORPUSCULAR HEMOGLOBIN 29.4 pg (27.0-31.0); MEAN CORPUSCULAR HGB CONC 34.6 g/dL (32.0-36.0); MEAN PLATELET VOLUME 10.9 fL (7.9-10.8); MONOCYTES % (AUTO) 4.7 %; NEUTROPHILS % (AUTO) 74.1 %; PLT - PLATELET COUNT 297 10^3/uL (130-450); RED BLOOD COUNT 5.79 10^6/uL (4.20-5.40); RED CELL DISTRIBUTION WIDTH 13.2 % (12.0-15.0); WHITE BLOOD COUNT 6.6 x10^3/uL (4.8-10.8)
[2019-03-22 04:58] LABS: ABNORMAL LYMPHS % (MANUAL) 0 %
[2019-03-22 05:23] LABS: CALCIUM 7.8 mg/dL (8.5-10.3); CREATININE 0.9 mg/dL (0.4-1.0)
[2019-03-22] MEDS: KETOROLAC 30 MG/ML VIAL IVP PRN ×3 (05:41→20:47)
[2019-03-22 05:44] LABS: BAND NEUTROPHILS % (MANUAL) 23 %; DIFFERENTIAL COMMENT MANUAL DIFFERENTIAL; LYMPHOCYTES # (MANUAL) 1.5 10^3/uL (1.5-3.5); LYMPHOCYTES % (MANUAL) 22 %; METAMYELOCYTES % (MANUAL) 1 %; MONOCYTES # (MANUAL) 0.3 10^3/uL (0.0-1.0); MYELOCYTES % (MANUAL) 1 %; PLATELET ESTIMATE, MANUAL NORMAL (130-450,000) (NORMAL); RBC MORPHOLOGY (MULTIPLE) NORMAL APPEARANCE (NORMAL)
[2019-03-22] MEDS: PANTOPRAZOLE 40 MG VIAL IVP SCH (06:14)
--- NOTE | 2019-03-22 06:46 | XRAY Report ---
Reason: NG tube placment Procedure Date: 03/20/2019 Accession Number: [id number] / [id number] Procedure: XR - Chest for Line Placement CPT Code: FULL RESULT: EXAM: CHEST RADIOGRAPHY EXAM DATE: 03/20/2019 10:50 PM. CLINICAL HISTORY: NG tube placment. COMPARISON: None. TECHNIQUE: 1 view. FINDINGS: Lungs/Pleura: No focal opacities evident. No pleural effusion. No pneumothorax. Mediastinum: Within exam limitations, the cardiomediastinal contour is normal. Other: Tip of the nasogastric tube in the proximal stomach. IMPRESSION: No acute cardiopulmonary disease seen. Tip of the nasogastric tube in the proximal stomach. RADIA
[2019-03-22] MEDS: SODIUM CHLORIDE FLUSH 0.9% 10 ML SYRINGE IVP PRN ×3 (08:44→16:34)
[2019-03-22] MEDS: HYDROmorphone 1 MG/ML CARPUJECT IVP PRN ×2 (09:16→16:33)
[2019-03-22] MEDS: POLYETHYLENE GLYCOL 3350 17 GM PACKET PO SCH (09:56)
[2019-03-22] MEDS ORDERED: LACTATED RINGERS 1,000 ML IV ONE (10:11)
--- NOTE | 2019-03-22 10:15 | PROVIDER PROGRESS NOTE ---
Subjective - Prog Note Date Prog Note Date: 03/22/19 Prog Note Time: 10:12 - Subjective Pt reports feeling: Improved Subjective: no abd pain but very, very nauseated and requiring companzine and zofran. wants to know what meds to use to control her menstrual cramps since I have stopped her OCP. stil NPO x ice chips. Current Medications - Current Medications Current Medications: Active Medications Hydromorphone HCl (Dilaudid Inj Carp) 1 mg IVP Q2HR PRN PRN Reason: Pain 8 to 10 Last Admin: 03/22/19 09:16 Dose: 1 mg Dextrose/Sodium Chloride (D5.45ns) 1,000 mls @ 125 mls/hr IV .Q8H SIRIA Last Admin: 03/22/19 09:55 Dose: 125 mls/hr Insulin Human Regular 100 unit (/ Sodium Chloride) 100 mls @ 3 mls/hr IV .[id number] ONE; Protocol Stop: 03/22/19 16:57 Last Titration: 03/22/19 08:27 Dose: 3 unit/hr, 3 mls/hr Lactated Ringer's (Lr) 1,000 mls @ 999 mls/hr IV ONCE ONE Stop: 03/22/19 11:11 Ketorolac Tromethamine (Toradol Inj (30mg)) 30 mg IVP Q6HR PRN PRN Reason: PAIN Stop: 03/26/19 12:39 Last Admin: 03/22/19 05:41 Dose: 30 mg Ondansetron HCl (Zofran Inj) 4 mg IVP Q6HR PRN PRN Reason: Nausea / Vomiting Last Admin: 03/22/19 08:42 Dose: 4 mg Pantoprazole Sodium (Protonix) 40 mg IVP QDAC SIRIA Last Admin: 03/22/19 06:14 Dose: 40 mg Phenol/Menthol (Chloraseptic) 2 sprays MM Q2HR PRN PRN Reason: Throat Pain Last Admin: 03/21/19 16:23 Dose: 1 sprays Polyethylene Glycol (Miralax) 17 gm PO DAILY SIRIA Last Admin: 03/22/19 09:56 Dose: Not Given Promethazine HCl (Phenergan) 12.5 mg PO Q6HR PRN PRN Reason: Nausea / Vomiting Last Admin: 03/22/19 04:14 Dose: 12.5 mg Sodium Chloride (Normal Saline Flush 0.9%) 10 ml IVP PRN PRN PRN Reason: NEEDED PER PROVIDER ORDERS Last Admin: 03/22/19 09:16 Dose: 10 ml Sodium Chloride (Normal Saline Flush 0.9%) 10 ml IVP 0100,0900,1700 SIRIA Last Admin: 03/22/19 09:56 Dose: Not Given Norethindrone-E.estradiol-Iron [Microgestin Fe 1-20 Tablet] 1 tab PO DAILY 03/20/19 Cetirizine [ZyrTEC] 10 mg PO DAILY 03/21/19 Objective - Vital Signs/Intake & Output Reviewed Vital Signs: Yes Vital Signs: Vital Signs x48h Temp Pulse Resp BP Pulse Ox 03/22/19 10:00 95 17 87/70 L 03/22/19 09:00 119 H 24 105/81 H 98 03/22/19 08:00 36.4 C L 119 H 28 H 107/85 H 98 03/22/19 07:00 117 H 25 H 97/79 03/22/19 06:00 123 H 29 H 108/76 03/22/19 05:15 120 H 28 H 106/78 03/22/19 04:00 36.6 C 120 H 30 H 112/81 H 97 03/22/19 03:00 106 H 26 H 108/74 Intake & Output: Intake & Output 03/19/19 03/20/19 03/21/19 03/22/19 23:59 23:59 23:59 23:59 Intake Total 1000 3040.600 2041.433 Output Total 1675 500 Balance 1000 1108.018 0569.433 - Objective General Appearance: positive: No acute distress, Alert, Mild distress (from nausea, emesis bag kept nearby even while speaking to me. still tachy consistently, mom at bedside) Eyes Bilateral: positive: PERRL, EOMI ENT: positive: Pharynx nml, No signs of dehydration Neck: positive: No JVD. negative: Stiff neck, Carotid bruit Respiratory: positive: Chest non-tender. negative: Wheezes, Rales, Rhonchi Cardiovascular: positive: Regular rate & rhythm, Tachycardia. negative: Gallop/S4, Friction rub Abdomen: positive: No organomegaly, Nml bowel sounds, No distention, Tenderness (epigastrium, left side abd, mild). negative: Guarding, Rebound Skin: positive: Warm, Dry. negative: Skin rash Extremities: positive: Non-tender, No pedal edema Neurologic/Psychiatric: positive: Oriented x3, CN's nml (2-12), Motor nml, Sensation nml - Lab Results Fish Bones: 03/22/19 04:35 03/22/19 04:35 Other Labs: Lab Results x24hrs 03/22/19 03/22/19 03/22/19 Range/Units 08:02 06:11 04:35 WBC (4.8-10.8) x10^3/uL RBC (4.20-5.40) 10^6/uL Hgb (12.0-16.0) g/dL Hct (37.0-47.0) % MCV (81.0-99.0) fL MCH (27.0-31.0) pg MCHC (32.0-36.0) g/dL RDW (12.0-15.0) % Plt Count (130-450) 10^3/uL MPV (7.9-10.8) fL Neut # (Auto) Lymph # (Auto) [place] # (Auto) Eos # (Auto) Baso # (Auto) Absolute Nucleated RBC Total Counted Band Neuts % (Manual) (0 - 10) % Abnorm Lymph % (Manual) % Metamyelocytes % ( - 0) % Myelocytes % ( - 0) % Nucleated RBC % Neutrophils # (Manual) (1.5-6.6) 10^3/uL Lymphocytes # (Manual) (1.5-3.5) 10^3/uL Monocytes # (Manual) (0.0-1.0) 10^3/uL Eosinophils # (Manual) (0-0.7) 10^3/uL Basophils # (Manual) (0-0.1) 10^3/uL Differential Comment Platelet Estimate (NORMAL) RBC Morph Micro Appear (NORMAL) Sodium 136 (135-145) mmol/L Potassium 3.6 (3.5-5.0) mmol/L Chloride 105 (101-111) mmol/L Carbon Dioxide 18 L (21-32) mmol/L Anion Gap 13.0 (6-13) BUN 15 (6-20) mg/dL Creatinine 0.9 (0.4-1.0) mg/dL Estimated GFR (MDRD) 96 (>89) Glucose 132 H (70-100) mg/dL POC Whole Bld Glucose 120 H 128 H (70 - 100) mg/dL Calcium 7.8 L (8.5-10.3) mg/dL Triglycerides 270 H ( - 149) mg/dL Lipase 660 H (22-51) U/L Nasal Screen MRSA (PCR) (NEGATIVE) 03/22/19 03/22/19 03/22/19 Range/Units 04:35 03:59 02:06 WBC 6.6 (4.8-10.8) x10^3/uL RBC 5.79 H (4.20-5.40) 10^6/uL Hgb 17.0 H (12.0-16.0) g/dL Hct 49.2 H (37.0-47.0) % MCV 85.0 (81.0-99.0) fL MCH 29.4 (27.0-31.0) pg MCHC 34.6 (32.0-36.0) g/dL RDW 13.2 (12.0-15.0) % Plt Count 297 (130-450) 10^3/uL MPV 10.9 H (7.9-10.8) fL Neut # (Auto) Not Reportable Lymph # (Auto) Not Reportable [place] # (Auto) Not Reportable Eos # (Auto) Not Reportable Baso # (Auto) Not Reportable Absolute Nucleated RBC Not Reportable Total Counted 100 Band Neuts % (Manual) 23 H (0 - 10) % Abnorm Lymph % (Manual) 0 % Metamyelocytes % 1 H ( - 0) % Myelocytes % 1 H ( - 0) % Nucleated RBC % Not Reportable Neutrophils # (Manual) 4.7 (1.5-6.6) 10^3/uL Lymphocytes # (Manual) 1.5 (1.5-3.5) 10^3/uL Monocytes # (Manual) 0.3 (0.0-1.0) 10^3/uL Eosinophils # (Manual) 0.0 (0-0.7) 10^3/uL Basophils # (Manual) 0.0 (0-0.1) 10^3/uL Differential Comment MANUAL DIFFERENTIAL Platelet Estimate NORMAL (130-450,000) (NORMAL) RBC Morph Micro Appear NORMAL APPEARANCE (NORMAL) Sodium (135-145) mmol/L Potassium (3.5-5.0) mmol/L Chloride (101-111) mmol/L Carbon Dioxide (21-32) mmol/L Anion Gap (6-13) BUN (6-20) mg/dL Creatinine (0.4-1.0) mg/dL Estimated GFR (MDRD) (>89) Glucose (70-100) mg/dL POC Whole Bld Glucose 130 H 130 H (70 - 100) mg/dL Calcium (8.5-10.3) mg/dL Triglycerides ( - 149) mg/dL Lipase (22-51) U/L Nasal Screen MRSA (PCR) (NEGATIVE) 03/22/19 03/21/19 03/21/19 Range/Units 00:02 21:56 19:57 WBC (4.8-10.8) x10^3/uL RBC (4.20-5.40) 10^6/uL Hgb (12.0-16.0) g/dL Hct (37.0-47.0) % MCV (81.0-99.0) fL MCH (27.0-31.0) pg MCHC (32.0-36.0) g/dL RDW (12.0-15.0) % Plt Count (130-450) 10^3/uL MPV (7.9-10.8) fL Neut # (Auto) Lymph # (Auto) [place] # (Auto) Eos # (Auto) Baso # (Auto) Absolute Nucleated RBC Total Counted Band Neuts % (Manual) (0 - 10) % Abnorm Lymph % (Manual) % Metamyelocytes % ( - 0) % Myelocytes % ( - 0) % Nucleated RBC % Neutrophils # (Manual) (1.5-6.6) 10^3/uL Lymphocytes # (Manual) (1.5-3.5) 10^3/uL Monocytes # (Manual) (0.0-1.0) 10^3/uL Eosinophils # (Manual) (0-0.7) 10^3/uL Basophils # (Manual) (0-0.1) 10^3/uL Differential Comment Platelet Estimate (NORMAL) RBC Morph Micro Appear (NORMAL) Sodium (135-145) mmol/L Potassium (3.5-5.0) mmol/L Chloride (101-111) mmol/L Carbon Dioxide (21-32) mmol/L Anion Gap (6-13) BUN (6-20) mg/dL Creatinine (0.4-1.0) mg/dL Estimated GFR (MDRD) (>89) Glucose (70-100) mg/dL POC Whole Bld Glucose 124 H 138 H 123 H (70 - 100) mg/dL Calcium (8.5-10.3) mg/dL Triglycerides ( - 149) mg/dL Lipase (22-51) U/L Nasal Screen MRSA (PCR) (NEGATIVE) 03/21/19 03/21/19 03/21/19 Range/Units 18:07 13:27 11:04 WBC (4.8-10.8) x10^3/uL RBC (4.20-5.40) 10^6/uL Hgb (12.0-16.0) g/dL Hct (37.0-47.0) % MCV (81.0-99.0) fL MCH (27.0-31.0) pg MCHC (32.0-36.0) g/dL RDW (12.0-15.0) % Plt Count (130-450) 10^3/uL MPV (7.9-10.8) fL Neut # (Auto) Lymph # (Auto) [place] # (Auto) Eos # (Auto) Baso # (Auto) Absolute Nucleated RBC Total Counted Band Neuts % (Manual) (0 - 10) % Abnorm Lymph % (Manual) % Metamyelocytes % ( - 0) % Myelocytes % ( - 0) % Nucleated RBC % Neutrophils # (Manual) (1.5-6.6) 10^3/uL Lymphocytes # (Manual) (1.5-3.5) 10^3/uL Monocytes # (Manual) (0.0-1.0) 10^3/uL Eosinophils # (Manual) (0-0.7) 10^3/uL Basophils # (Manual) (0-0.1) 10^3/uL Differential Comment Platelet Estimate (NORMAL) RBC Morph Micro Appear (NORMAL) Sodium (135-145) mmol/L Potassium (3.5-5.0) mmol/L Chloride (101-111) mmol/L Carbon Dioxide (21-32) mmol/L Anion Gap (6-13) BUN (6-20) mg/dL Creatinine (0.4-1.0) mg/dL Estimated GFR (MDRD) (>89) Glucose (70-100) mg/dL POC Whole Bld Glucose 128 H 145 H 158 H (70 - 100) mg/dL Calcium (8.5-10.3) mg/dL Triglycerides ( - 149) mg/dL Lipase (22-51) U/L Nasal Screen MRSA (PCR) (NEGATIVE) 03/21/19 Range/Units 09:53 WBC (4.8-10.8) x10^3/uL RBC (4.20-5.40) 10^6/uL Hgb (12.0-16.0) g/dL Hct (37.0-47.0) % MCV (81.0-99.0) fL MCH (27.0-31.0) pg MCHC (32.0-36.0) g/dL RDW (12.0-15.0) % Plt Count (130-450) 10^3/uL MPV (7.9-10.8) fL Neut # (Auto) Lymph # (Auto) [place] # (Auto) Eos # (Auto) Baso # (Auto) Absolute Nucleated RBC Total Counted Band Neuts % (Manual) (0 - 10) % Abnorm Lymph % (Manual) % Metamyelocytes % ( - 0) % Myelocytes % ( - 0) % Nucleated RBC % Neutrophils # (Manual) (1.5-6.6) 10^3/uL Lymphocytes # (Manual) (1.5-3.5) 10^3/uL Monocytes # (Manual) (0.0-1.0) 10^3/uL Eosinophils # (Manual) (0-0.7) 10^3/uL Basophils # (Manual) (0-0.1) 10^3/uL Differential Comment Platelet Estimate (NORMAL) RBC Morph Micro Appear (NORMAL) Sodium (135-145) mmol/L Potassium (3.5-5.0) mmol/L Chloride (101-111) mmol/L Carbon Dioxide (21-32) mmol/L Anion Gap (6-13) BUN (6-20) mg/dL Creatinine (0.4-1.0) mg/dL Estimated GFR (MDRD) (>89) Glucose (70-100) mg/dL POC Whole Bld Glucose (70 - 100) mg/dL Calcium (8.5-10.3) mg/dL Triglycerides ( - 149) mg/dL Lipase (22-51) U/L Nasal Screen MRSA (PCR) NEGATIVE (NEGATIVE) ABX Reporting Has patient been on IV antibiotics over the past 48 hours?: No Assessment/Plan - Problem List (1) Acute pancreatitis Impression: This is an unfortunate young female who turned 19, 3 weeks ago. She never drank prior to that because she did not like alcohol. She does not know how much she drank the day before her birthday, or how much she drank on her birthday. She just knows it was "a lot" with her girlfriends. Both of those days she was very sick with nausea vomiting and abdominal pain. She felt like she improved, and her stomach was just a little bit queasy but otherwise doing well. She is already on oral contraceptives. She does have a vague familial history of high lipids in 1 of her father's family members. So she does not know if she has familial hypertriglyceridemia. She may have had hypertriglyceridemia, did binge drinking, and takes oral contraceptives resulting in pancreatitis. She was started on an insulin drip and I did speak to waterworks pump station operator hospitalist to see if he would do apheresis but he would not. Only if she hasn't responded would he do that. She is doing well. Triglycerides have dropped significantly. Lipase 1/3 was it was. Glucose low on drip but also on D5. Still tachycardic in spite of IVF Plan: Changed from observation status to inpatient status. Continue n.p.o. status except for ice chips but start clear liquids in am. If she is doing well after breakfast, give regular diet at lunch. She wants to go home and may be able to tomorrow afternoon if her diet is tolerated and abd exam remains stable. Give 1 liter of LR bolus. I have called her PCP office of ILANA Israel at [facility] who is located thru [facility] at [address] [place] [address], [place], [place], @[phone]. Ms Eduardo is not there today and I have left a message for her staff to call me. This aileen young lady will need a lipid specialist ROSENDO. I have told her she may never have alcohol again. Qualifiers: Pancreatitis type: other Acute pancreatitis complication: unspecified Qualified Code(s): K85.80 - Other acute pancreatitis without necrosis or infection (2) Anxiety Impression: She is tearful. Already sees a counselor for anxiety. School starts in a week. I really cannot guarantee that she will be able to start school. She is making plans to stop the class that she has to be present for. But will keep her online classes. (3) Familial hypertriglyceridemia Impression: When she is through her acute phase of hypertriglyceridemia and pancreatitis, she would be a candidate for starting Lopid. I did stop her oral contraceptives until she sees a lipid specialist. She is seen by [facility] in [place]. Start Lopid today. Have Nutrition Consult today. (4) Oral contraceptive use Impression: Oral contraceptives were used for menometrorrhagia and severe cramping. She is starting her period right now and is in moderate pain. Will use Toradol IV every 6 as needed. In the outpatient setting, napchris cerrato, patrick cerrato. (5) Alcohol consumption binge drinking Impression: Not a usual pattern of behavior for her. She is never really liked alcohol. When I asked her in various ways how much she drank that day she really does not have any recollection. She says that her best friend was buying her drinks and she does not know how many she drank either the day before her birthday or on her birthday. I have asked her to never drink alcohol again
[2019-03-22] MEDS: INSULIN REGULAR HUMAN 100 UNIT in SODIUM CHLORIDE 0.9% 100ML 99 ML IV ONE (14:56)
[2019-03-22] MEDS: GEMFIBROZIL 600 MG TABLET PO SCH (15:51)
[2019-03-23] MEDS: PROMETHAZINE 12.5 MG TABLET PO PRN ×4 (00:13→21:17)
[2019-03-23] MEDS: SODIUM CHLORIDE FLUSH 0.9% 10 ML SYRINGE IVP PRN ×3 (00:14→06:21)
[2019-03-23] MEDS: HYDROmorphone 1 MG/ML CARPUJECT IVP PRN ×2 (00:14→09:35)
[2019-03-23] MEDS: DEXTROSE 5%-0.45% NACL 1,000 ML IV SCH (02:25)
[2019-03-23] MEDS: KETOROLAC 30 MG/ML VIAL IVP PRN (04:37)
[2019-03-23 05:52] LABS: BASOPHILS % (AUTO) 0.5 %; EOSINOPHILS % (AUTO) 0.6 %; HGB - HEMOGLOBIN 14.8 g/dL (12.0-16.0); LYMPHOCYTES % (AUTO) 15.5 %; MEAN CORPUSCULAR HEMOGLOBIN 28.6 pg (27.0-31.0); MEAN CORPUSCULAR HGB CONC 33.1 g/dL (32.0-36.0); MEAN CORPUSCULAR VOLUME 86.3 fL (81.0-99.0); MEAN PLATELET VOLUME 10.9 fL (7.9-10.8); MONOCYTES % (AUTO) 4.4 %; NEUTROPHILS % (AUTO) 78.1 %; PLT - PLATELET COUNT 247 10^3/uL (130-450); RED BLOOD COUNT 5.18 10^6/uL (4.20-5.40); RED CELL DISTRIBUTION WIDTH 13.5 % (12.0-15.0); WHITE BLOOD COUNT 8.5 x10^3/uL (4.8-10.8)
[2019-03-23 05:59] LABS: ABNORMAL LYMPHS % (MANUAL) 0 %; CALCIUM 7.7 mg/dL (8.5-10.3); CREATININE 0.8 mg/dL (0.4-1.0)
[2019-03-23 06:13] LABS: BAND NEUTROPHILS % (MANUAL) 29 %; DIFFERENTIAL COMMENT MANUAL DIFFERENTIAL; LYMPHOCYTES # (MANUAL) 1.2 10^3/uL (1.5-3.5); LYMPHOCYTES % (MANUAL) 14 %; PLATELET ESTIMATE, MANUAL NORMAL (130-450,000) (NORMAL); RBC MORPHOLOGY (MULTIPLE) NORMAL APPEARANCE (NORMAL)
[2019-03-23] MEDS: GEMFIBROZIL 600 MG TABLET PO SCH ×2 (06:16→16:57)
[2019-03-23] MEDS: PANTOPRAZOLE 40 MG VIAL IVP SCH (06:16)
--- NOTE | 2019-03-23 09:04 | Discharge Plan ---
Discharge Plan Problem Reviewed?: Yes Disposition: Home, Self Care Condition: Fair Diet: Regular (Low fat diet) Activity Restrictions: Activity as Tolerated Shower Restrictions: No Driving Restrictions: No Instruction Topics: Triglycerides, Pancreatitis, Cholesterol Numbers Health Concerns: Admitted with acute pancreatitis, found to have very high Triglycerides which, added to control pill use was likely the cause. Plan of Treatment: After bowel rest and iv hydration, new medications are being started for high Triglycerides, and as needed meds for nausea. Management with a specialist was requested, needing a referral from your PCP. Dietary changes were advised with a visit from the Registered Dieticain. Care Goals: Improve blood levels of Triglycerides, and recover from acute pancreatitis attack. Assessment: The patient is in agreement with the plan. No Smoking: If you smoke, Please STOP! Call for help. Follow-up with: Pedro Luis Lowry ARNP [Primary Care Provider] -
[2019-03-23] MEDS: ONDANSETRON 4 MG/2 ML VIAL IVP PRN ×3 (09:30→23:54)
[2019-03-23] MEDS: SODIUM CHLORIDE FLUSH 0.9% 10 ML SYRINGE IVP SCH ×2 (10:13→16:57)
[2019-03-23] MEDS: POLYETHYLENE GLYCOL 3350 17 GM PACKET PO SCH (10:24)
[2019-03-23] MEDS: OMEGA-3 ACID ETHYL ESTERS 1 GM CAPSULE PO SCH (10:24)
[2019-03-23] MEDS: DOCUSATE SODIUM 250 MG CAPSULE PO SCH (10:24)
[2019-03-23 13:47] LABS: CHOLESTEROL 168 mg/dL; HDL CHOLESTEROL 24 mg/dL; LDL CHOLESTEROL,CALCULATED 96 mg/dL; VLDL CHOLESTEROL 48 mg/dL
[2019-03-23] MEDS: HYDROcod/ACETAM 5/325 MG TABLET PO PRN ×2 (15:09→23:53)
--- NOTE | 2019-03-23 16:40 | PROVIDER PROGRESS NOTE ---
Assessment/Plan - Problem List (1) Acute pancreatitis Assessment/Plan: She tolerated clear liquids without nausea for breakfast. At lunch the RD advised a Reg diet, "easily digestable" which was ordered and she only took the peaches, then she got nauseated and needed medication. Her Lipase continues to decline, today down to 240. Continue iv fluids if po diet is not tolerated. Continue prn anti-emetics (2) Familial hypertriglyceridemia Assessment/Plan: He first Trigl were 1800. This has decreased to 280. She got iv Insulin drip, and was started on Lopid and Fish oil capsules. Subassembly Supervisor spoke to her and mother at bedside. (3) Weakness Assessment/Plan: She feels so weak that her mother requested a PT eval, since the patient has to ambulate up some stairs when home and also has an air flight in several days and then also starts college classes. PT eval was requested. The patient could not participtae because of nausea and because of weakness. She is not ready for [facility] home today. - Current Meds Current Meds: Current Medications Generic Name Dose Route Start Last Admin Trade Name Freq PRN Reason Stop Dose Admin Hydrocodone Bitart/Acetaminophen 1 tab 03/22/19 23:44 03/23/19 15:09 [place] 5/325 PO 1 tab Q4HR PRN Administration PAIN Docusate Sodium 250 - 500 mg 03/23/19 09:00 03/23/19 10:24 Colace 250mg Capsule PO 250 mg DAILY SIRIA Administration Gemfibrozil 600 mg 03/22/19 16:00 03/23/19 06:16 Lopid PO 600 mg BIDAC SIRIA Administration Hydromorphone HCl 1 mg 03/21/19 00:27 03/23/19 09:35 Dilaudid Inj Carp IVP 1 mg Q2HR PRN Administration Pain 8 to 10 Anwtj-1-Pnem Ethyl Esters 1 gm 03/23/19 09:00 03/23/19 10:24 Lovaza PO 1 gm DAILY SIRIA Administration Ondansetron HCl 4 mg 03/20/19 21:41 03/23/19 09:30 Zofran Inj IVP 4 mg Q6HR PRN Administration Nausea / Vomiting Pantoprazole Sodium 40 mg 03/21/19 07:00 03/23/19 06:16 Protonix IVP 40 mg QDAC SIRIA Administration Phenol/Menthol 2 sprays 03/21/19 09:19 03/21/19 16:23 Chloraseptic MM 1 sprays Q2HR PRN Administration Throat Pain Polyethylene Glycol 17 gm 03/21/19 09:00 03/23/19 10:24 Miralax PO 17 gm DAILY SIRIA Administration Promethazine HCl 12.5 mg 03/21/19 19:21 03/23/19 14:26 Phenergan PO 12.5 mg Q6HR PRN Administration Nausea / Vomiting Sodium Chloride 10 ml 03/20/19 21:41 03/23/19 06:21 Normal Saline Flush 0.9% IVP 10 ml PRN PRN Administration NEEDED PER PROVIDER ORDERS Sodium Chloride 10 ml 03/21/19 01:00 03/23/19 10:13 Normal Saline Flush 0.9% IVP Not Given 0100,0900,1700 SIRIA - Lab Result Fish Bone Diagrams: 03/23/19 05:34 03/23/19 05:34 - Additional Planning My Orders: My Active Orders 03/23/19 Evaluate and Treat PT [PT] Routine 03/23/19 08:25 Blood Glucose POC [RC] 0800,1200,1700,2100 03/23/19 Lunch DIET [Low Fat Diet] [DIET] Subjective - Subjective Patient Reports: Fatigue Nursing Reports: Nausea, Other ("Too weak to eat") Objective Vital Signs: Vital Signs - 24 hr 03/22/19 03/23/19 03/23/19 19:52 00:00 04:50 Temperature 36.2 C L 36.3 C L 36.6 C Heart Rate [ 105 H 122 H 105 H Brachial] Heart Rate [ Sitting] Respiratory 16 18 18 Rate Blood Pressure 114/83 H 118/80 [Left Brachial artery] Blood Pressure 113/77 [Right Brachial artery] Blood Pressure [Sitting] O2 Saturation 97 97 96 03/23/19 03/23/19 03/23/19 08:34 10:54 14:37 Temperature 36.7 C 36.9 C Heart Rate [ 109 H 112 H Brachial] Heart Rate [ 117 H Sitting] Respiratory 18 16 Rate Blood Pressure [Left Brachial artery] Blood Pressure 120/77 120/83 H [Right Brachial artery] Blood Pressure 121/80 [Sitting] O2 Saturation 98 97 Oxygen O2 Source Room air I&O (Last 24 Hrs): Intake and Output Totals x24h 03/21/19 03/22/19 03/23/19 23:59 23:59 23:59 Intake Total 3040.600 4830.883 2442.617 Output Total 1675 1025 650 Balance 6980.541 7562.883 1792.617 General: Alert, Oriented x3 HEENT: Mucous membr. moist/pink Neck: Supple, No JVD Neuro: Non Focal Cardiovascular: Regular rate, No murmurs Respiratory: No respiratory distress Abdomen: Soft, No tenderness, Other (Decreased bowel sounds) Extremities: No edema - Results Results: Laboratory Results WBC 8.5 x10^3/uL (4.8-10.8) 03/23/19 05:34 RBC 5.18 10^6/uL (4.20-5.40) 03/23/19 05:34 Hgb 14.8 g/dL (12.0-16.0) 03/23/19 05:34 Hct 44.7 % (37.0-47.0) 03/23/19 05:34 MCV 86.3 fL (81.0-99.0) 03/23/19 05:34 MCH 28.6 pg (27.0-31.0) 03/23/19 05:34 MCHC 33.1 g/dL (32.0-36.0) 03/23/19 05:34 RDW 13.5 % (12.0-15.0) 03/23/19 05:34 Plt Count 247 10^3/uL (130-450) 03/23/19 05:34 MPV 10.9 fL (7.9-10.8) H 03/23/19 05:34 Neut # (Auto) Not Reportable 03/23/19 05:34 Lymph # (Auto) Not Reportable 03/23/19 05:34 [place] # (Auto) Not Reportable 03/23/19 05:34 Eos # (Auto) Not Reportable 03/23/19 05:34 Baso # (Auto) Not Reportable 03/23/19 05:34 Absolute Nucleated RBC Not Reportable 03/23/19 05:34 Total Counted 100 03/23/19 05:34 Band Neuts % (Manual) 29 % (0-10) H 03/23/19 05:34 Abnorm Lymph % (Manual) 0 % 03/23/19 05:34 Metamyelocytes % 1 % (-0) H 03/22/19 04:35 Myelocytes % 1 % (-0) H 03/22/19 04:35 Nucleated RBC % Not Reportable 03/23/19 05:34 Neutrophils # (Manual) 7.3 10^3/uL (1.5-6.6) H 03/23/19 05:34 Lymphocytes # (Manual) 1.2 10^3/uL (1.5-3.5) L 03/23/19 05:34 Monocytes # (Manual) 0.0 10^3/uL (0.0-1.0) 03/23/19 05:34 Eosinophils # (Manual) 0.0 10^3/uL (0-0.7) 03/23/19 05:34 Basophils # (Manual) 0.0 10^3/uL (0-0.1) 03/23/19 05:34 Differential Comment MANUAL DIFFERENTIAL 03/23/19 05:34 Platelet Estimate NORMAL (130-450,000) (NORMAL) 03/23/19 05:34 RBC Morph Micro Appear NORMAL APPEARANCE (NORMAL) 03/23/19 05:34 Sodium 132 mmol/L (135-145) L 03/23/19 05:34 Potassium 3.9 mmol/L (3.5-5.0) 03/23/19 05:34 Chloride 103 mmol/L (101-111) 03/23/19 05:34 Carbon Dioxide 20 mmol/L (21-32) L 03/23/19 05:34 Anion Gap 9.0 (6-13) 03/23/19 05:34 BUN 16 mg/dL (6-20) 03/23/19 05:34 Creatinine 0.8 mg/dL (0.4-1.0) 03/23/19 05:34 Estimated GFR (MDRD) 110 (>89) 03/23/19 05:34 Glucose 144 mg/dL (70-100) H 03/23/19 05:34 POC Whole Bld Glucose 124 mg/dL (70 - 100) H 03/23/19 10:51 Glycated Hemoglobin 5.2 % (4.6-6.2) 03/21/19 04:54 Estim Average Glucose 103 (70-100) H 03/21/19 04:54 Calcium 7.7 mg/dL (8.5-10.3) L 03/23/19 05:34 Total Bilirubin < 0.2 mg/dL (0.2-1.0) L 03/20/19 19:01 AST 39 IU/L (10-42) 03/20/19 19:01 ALT 23 IU/L (10-60) 03/20/19 19:01 Alkaline Phosphatase 63 IU/L (42-121) 03/20/19 19:01 Total Protein 6.5 g/dL (6.7-8.2) L 03/20/19 19:01 Albumin 4.3 g/dL (3.2-5.5) 03/20/19 19: Globulin 2.2 g/dL (2.1-4.2) 03/20/19 19:01 Albumin/Globulin Ratio 2.0 (1.0-2.2) 03/20/19 19:01 Triglycerides 240 mg/dL (-149) H 03/23/19 05:34 Cholesterol 168 mg/dL (-199) 03/23/19 05:34 LDL Cholesterol Direct 34 mg/dL (-129) 03/21/19 04:54 LDL Cholesterol, Calc 96 mg/dL (-129) 03/23/19 05:34 VLDL Cholesterol 48 mg/dL 03/23/19 05:34 HDL Cholesterol 24 mg/dL (60-) L 03/23/19 05:34 LDL/HDL Ratio 4.0 (<4.4) 03/23/19 05:34 dLDL/HDL Ratio 1.7 (<4.4) 03/21/19 04:54 Cholesterol/HDL Ratio 7.0 (<4.4) 03/23/19 05:34 Lipase 280 U/L (22-51) H 03/23/19 05:34 TSH 0.78 uIU/mL (0.34-5.60) 03/21/19 07:36 Urine Color YELLOW 03/20/19 22:10 Urine Clarity CLEAR (CLEAR) 03/20/19 22:10 Urine pH 7.5 PH (5.0-7.5) 03/20/19 22:10 Ur Specific [place] <=1.005 (1.002-1.030) 03/20/19 22:10 Urine Protein NEGATIVE mg/dL (NEGATIVE) 03/20/19 22:10 Urine Glucose (UA) NEGATIVE mg/dL (NEGATIVE) 03/20/19 22:10 Urine Ketones TRACE mg/dL (NEGATIVE) 03/20/19 22:10 Urine Occult Blood MODERATE (NEGATIVE) H 03/20/19 22:10 Urine Nitrite NEGATIVE (NEGATIVE) 03/20/19 22:10 Urine Bilirubin NEGATIVE (NEGATIVE) 03/20/19 22:10 Urine Urobilinogen 0.2 (NORMAL) E.U./dL (NORMAL) 03/20/19 22:10 Ur Leukocyte Esterase NEGATIVE (NEGATIVE) 03/20/19 22:10 Urine RBC 0-5 /HPF (0-5) 03/20/19 22:10 Urine WBC 4-5 /HPF (0-5) 03/20/19 22:10 Ur Squamous Epith Cells MANY Squamous (<= Few) H 03/20/19 22:10 Urine Bacteria Many /HPF (None Seen) H 03/20/19 22:10 Ur Microscopic Review INDICATED 03/20/19 22:10 Urine Culture Comments NOT INDICATED 03/20/19 22:10 Urine HCG, Qual NEGATIVE 03/20/19 18:40 Nasal Screen MRSA (PCR) NEGATIVE (NEGATIVE) 03/21/19 09:53
[2019-03-23] MEDS ORDERED: LACTATED RINGERS 1,000 ML IV SCH (18:00)
[2019-03-24] MEDS: SODIUM CHLORIDE FLUSH 0.9% 10 ML SYRINGE IVP SCH ×2 (00:11→08:32)
[2019-03-24] MEDS: SODIUM CHLORIDE FLUSH 0.9% 10 ML SYRINGE IVP PRN ×2 (02:46→06:07)
[2019-03-24] MEDS: HYDROmorphone 1 MG/ML CARPUJECT IVP PRN (02:46)
[2019-03-24 04:51] LABS: BASOPHILS % (AUTO) 0.6 %; EOSINOPHILS % (AUTO) 0.7 %; HGB - HEMOGLOBIN 11.5 g/dL (12.0-16.0); MEAN CORPUSCULAR HGB CONC 32.8 g/dL (32.0-36.0); MEAN CORPUSCULAR VOLUME 88.4 fL (81.0-99.0); MEAN PLATELET VOLUME 10.8 fL (7.9-10.8); PLT - PLATELET COUNT 223 10^3/uL (130-450); RED BLOOD COUNT 3.97 10^6/uL (4.20-5.40); RED CELL DISTRIBUTION WIDTH 13.2 % (12.0-15.0); WHITE BLOOD COUNT 8.8 x10^3/uL (4.8-10.8)
[2019-03-24 04:54] LABS: ABNORMAL LYMPHS % (MANUAL) 0 %
[2019-03-24 05:08] LABS: ALBUMIN 2.2 g/dL (3.2-5.5); ALBUMIN/GLOBULIN RATIO 0.8 (1.0-2.2); ALKALINE PHOSPHATASE 31 IU/L (42-121); ALT ALANINE AMINOTRANSFERASE < 10 IU/L (10-60); AST ASPARTATE AMINOTRANSFERASE 20 IU/L (10-42); BILIRUBIN,TOTAL 0.8 mg/dL (0.2-1.0); BUN - BLOOD UREA NITROGEN 11 mg/dL (6-20); CALCIUM 7.9 mg/dL (8.5-10.3); CARBON DIOXIDE - CO2 22 mmol/L (21-32); CHLORIDE 103 mmol/L (101-111); CHOL/HDL RATIO 5.3 (<4.4); CHOLESTEROL 121 mg/dL; CREATININE 0.6 mg/dL (0.4-1.0); GFR - MDRD 153 (>89); GLUCOSE 106 mg/dL (70-100); HDL CHOLESTEROL 23 mg/dL; LDL CHOLESTEROL,CALCULATED 72 mg/dL; LDL/HDL RATIO 3.1 (<4.4); LIPASE 132 U/L (22-51); SODIUM 133 mmol/L (135-145); TOTAL PROTEIN 5.1 g/dL (6.7-8.2); VLDL CHOLESTEROL 26 mg/dL
[2019-03-24 05:38] LABS: BAND NEUTROPHILS % (MANUAL) 9 %; LYMPHOCYTES # (MANUAL) 1.7 10^3/uL (1.5-3.5); LYMPHOCYTES % (MANUAL) 19 %; MONOCYTES # (MANUAL) 0.4 10^3/uL (0.0-1.0)
[2019-03-24 05:39] LABS: DIFFERENTIAL COMMENT MANUAL DIFFERENTIAL; PLATELET ESTIMATE, MANUAL NORMAL (130-450,000) (NORMAL); RBC MORPHOLOGY (MULTIPLE) NORMAL APPEARANCE (NORMAL)
[2019-03-24] MEDS: GEMFIBROZIL 600 MG TABLET PO SCH (06:05)
[2019-03-24] MEDS: PANTOPRAZOLE 40 MG VIAL IVP SCH (06:06)
[2019-03-24] MEDS: POLYETHYLENE GLYCOL 3350 17 GM PACKET PO SCH (08:32)
[2019-03-24] MEDS: OMEGA-3 ACID ETHYL ESTERS 1 GM CAPSULE PO SCH (08:33)
[2019-03-24] MEDS: DOCUSATE SODIUM 250 MG CAPSULE PO SCH (08:47)
[2019-03-24] MEDS ORDERED: SENNA 8.6 MG TABLET PO SCH (09:00)
[2019-03-24 11:49] VITALS: BP 125/77
--- NOTE | 2019-03-24 12:31 | Discharge Plan ---
Discharge Plan Problem Reviewed?: Yes Disposition: Home, Self Care Condition: Fair Prescriptions: Gemfibrozil [Lopid] 600 mg PO BIDAC #60 tablet [place]-3 Acid Ethyl Esters [Lovaza] 1 gm PO DAILY #30 capsule Diet: Regular Activity Restrictions: Activity as Tolerated Shower Restrictions: No Driving Restrictions: No Instruction Topics: Triglycerides, Pancreatitis, Cholesterol Numbers Health Concerns: Admitted with acute pancreatitis, found to have very high Triglycerides which, added to control pill use was likely the cause. Plan of Treatment: After bowel rest and iv hydration, new medications are being started for high Triglycerides. Management with a specialist on [place] was requested, needing a referral from your PCP. Dietary changes were advised with a visit from the Registered Dieticain. Continue to drink alot of fluids to rehydrate. Stop the Control pill. Care Goals: Improve blood levels of Triglycerides, and recover from acute pancreatitis attack. Assessment: The patient and mother are in agreement with the plan. No Smoking: If you smoke, Please STOP! Call for help. Follow-up with: Pedro Luis Lowry ARNP [Primary Care Provider] -
[2019-03-24] MEDS ORDERED: BISACODYL 10 MG SUPP PR ONE (14:52)
--- NOTE | 2019-03-29 11:46 | DISCHARGE SUMMARY ---
Discharge Summary Admit Date: 03/20/19 Discharge Date: 03/24/19 Discharging Provider: Sumaya Griffith MD Primary Care Provider: FELICE Enriquez Code Status: Attempt Resuscitation Condition at Discharge: Stable Discharge Disposition: 01 Home, Self Care - DIAGNOSES Admission Diagnoses: 1) Acute pancreatitis 2) Alcohol binge 3) N/V 4) Anxiety Discharge Diagnoses with Status of Each Condition: See below - HPI History of Present Illness: As per the H&P of Dr Macho Simmons: Patient is a 19 y/o female who presented to the ED with epigastric pain which started on 03/20/19 in the morning. It was initially a sharp pain which progressed to a throbbing pain. She has been nauseous and vomiting. She denied chest pain, JAVIER, fever or chills. She drank alcohol about 3 weeks ago when she turned 19 but last had a glass of wine 4 days ago. She was also recently treated with flagyl for a UTI. She is on control pill for menorrhagia. There has been no trauma recently. In the ED she had a CT done which showed bishnu- pancreatic fluid suggesting pancreatitis and a fatty liver. Lipase was 446. She rated her pain 10/10 at presentation. As a result of her pain, she was admitted for further treatment. - HOSPITAL COURSE Hospital Course: (1) Acute pancreatitis She required iv narcotics for pain and iv antiemetics. She was kept npo for bowel rest and started on iv hydration. She was in the ICU and started on an Insulin drip for pancreatitis caused by hypertriglyceridemia, which was found on blood tests. She needed a slow D5 iv drip while on Insulin. She may have had hypertriglyceridemia, did binge alcohol drinking, recently completed a prescription of Flagyl and takes oral contraceptives, all adding to acute pancreatitis. The Hospitalist did speak to [employer] occupational therapy assistant Material Handler Floorperson to see if he would do apheresis but he would not, only if she hadn't responded would he do that. The serum Lipase improved from 1400>> 600>> 280>> 132. We stopped her oral contraceptives until she sees a specialist. She started to have her menstrual period while here and the cramps were treated with NSAIDs. She tolerated clear liquids after 3 days and then was advanced to a regular diet. It was advised she not drink alcohol ever. (2) Familial hypertriglyceridemia She does have a vague familial history of high lipids and 1 of her father's family members. So she does not know if she has familial hypertriglyceridemia. Her first triglyceride level was 186. This has decreased to 270>> 240>> 131, after being treated with Insulin drip and eventually starting oral Lopid and Fish Oil capsules. The High Lift Mule Operator spoke to her and mother at bedside about proper diet. The Hospitalist, Dr Zoe Gar, also called her PCP office of ILANA Israel at [facility] who is located thru [facility] at [address] [place] [address], @[phone]. Nurse Practitioner Jayce was not there but left a message. She should be seen by a Lipid Specialist. The patient was discharged with new prescriptions for Lopid and Fish Oil capsules. (3) Weakness She felt so weak that her mother requested a PT evaluation, since the patient has to ambulate up some stairs when home and also has an air flight in several days and then also starts college classes. She was able to ambulate and do stairs by the time of discharge. 4) Anxiety She normally sees a therapist, but is not on any medications for anxiety. At the end of her hospital course, she was still intermittently tachycardic, which the patient felt was due to anxiety over this event and over starting college soon. - ALLERGIES Allergies/Adverse Reactions: Allergies Allergy/AdvReac Type Severity Reaction Status Date / Time No Known Drug Allergies Allergy Verified 03/20/19 18:33 - MEDICATIONS Home Medications: Ambulatory Orders Medication Instructions Recorded Confirmed Cetirizine [ZyrTEC] 10 mg PO DAILY 03/21/19 03/21/19 Gemfibrozil [Lopid] 600 mg PO BIDAC #60 tablet 03/24/19 [place]-3 Acid Ethyl Esters [Lovaza] 1 gm PO DAILY #30 capsule 03/24/19 - PHYSICAL EXAM AT DISCHARGE General Appearance: positive: No acute distress Eyes Bilateral: positive: Normal inspection ENT: positive: ENT inspection nml, Other (Moist oral mucosa) Neck: positive: Nml inspection, Thyroid nml, No JVD Respiratory: positive: No respiratory distress, Breath sounds nml Cardiovascular: positive: Regular rate & rhythm, No murmur Abdomen: positive: Non-tender, No distention Skin: positive: Color nml Extremities: positive: Non-tender, No pedal edema Neurologic/Psychiatric: positive: Oriented x3, Motor nml - LABS Result Diagrams: 03/24/19 04:30 03/24/19 04:30 - DIAGNOSTIC IMAGING Diagnostic Imaging Results: Final report reviewed - FOLLOW UP Follow Up: She is to see her PCP in [place] when she gets to college in the upcoming week. - TIME SPENT Time Spent in Discharge (Minutes): 60
== END 2019-03-24 15:30 | disposition home or self-care (01) | DRG 440 ==
LOC: ED 17:49 → UNDOADMIN 21:41 → INTOOBSV 21:41 → MS2 21:41 → OBSVTOIN 21:41 → MS2 21:41 → OBSVTOIN 03-21 07:53 → MS2 03-21 07:53 → ICU 03-21 07:53 → MS2 03-22 12:22 → ICU 03-22 12:22 → UNDODISIN 03-24 15:30
PROVIDERS: ADMIT Internal Medicine; ATTEND Internal Medicine
DX: K85.30 Drug induced acute pancreatitis without necrosis or infection (principal); K85.20 Alcohol induced acute pancreatitis without necrosis or infection; E78.1 Pure hyperglyceridemia; T38.4X5A Adverse effect of oral contraceptives, initial encounter; T37.3X5A Adverse effect of other antiprotozoal drugs, initial encounter; N92.0 Excessive and frequent menstruation with regular cycle; N94.6 Dysmenorrhea, unspecified; F41.9 Anxiety disorder, unspecified; R53.1 Weakness; K76.0 Fatty (change of) liver, not elsewhere classified; Z87.440 Personal history of urinary (tract) infections; Z87.898 Personal history of other specified conditions; Z83.49 Family history of other endocrine, nutritional and metabolic diseases
CPT/HCPCS: 36415; 74177; 80048; 80053; 80061; 81001; 81025; 83036; 83690; 83721; 84443; 84478; 85025; 87150; 96361; 96374; 96375; 96376; 97161; 99284; 99285; A9270; G0378; J1170; J1815; J7120; Q9967; 71045; 81003; 87086